=== PATIENT | female | born 1955 | race African-American/Black ===

== ENCOUNTER 2023-05-27 04:46 | Emergency (ER) | payer OTHER ==
[~2023-05-27] VITALS: Ht 152.4 cm; Wt 85.5 kg
[2023-05-27 05:05] VITALS: BP 165/70; PULSE 88; RESP 18; TEMP 98.1; O2SAT 100
== END 2023-05-27 06:02 | disposition home or self-care (01) ==
LOC: ER 04:46
DX: I10 Essential (primary) hypertension (principal); E11.9 Type 2 diabetes mellitus without complications; E78.5 Hyperlipidemia, unspecified; Z86.73 Personal history of transient ischemic attack (TIA), and cerebral infarction without residual deficits